=== PATIENT | female | born 1990 | race Caucasian/White ===

== ENCOUNTER 2024-04-22 11:17 | Outpatient (REF) | payer OTHER, SELFPAY ==
--- OUTSIDE RECORDS SUMMARY | 2024-04-22 12:36 | XMS_ITS | Clinical Summary ---
Author Organization [address] Address [address] [place] [phone] Care Team Providers Care Wildlife Ecology Professor Name Role Phone Unavailable Primary Care Provider Unavailabl e Social History Tobacco Use Types Packs/Day Years Used Date Smoking Tobacco: Never Assessed Comments Unknown Sex and Gender Information Value Date Recorded Sex Assigned at Not on file Legal Sex Female 9:31 AM EDT Gender Identity Not on file Sexual Orientation Not on file Plan of Treatment Health Maintenance Due Date Last Done Comments HIV screening 2002 Hepatitis C screening 2007 Cervical cancer screening 2010 Influenza vaccine 10/12/2023 Covid-19 vaccine series ( season) 2023 Tetanus adult (Td q 10,TDAP once) 03/20/2029 03/20/2019, 09/04/2007, 09/24/1999, Additional history exists RSV Discussion (1 - 1-dose 75+ series) 2064 Meningococcal Vaccine Aged Out 09/04/2007 No jackelin rubén eligible based on patient's age to complete this topic Pneumococcal Vaccine Aged Out No long er eligible based on patient's age to complete [place] [address] [employer] FAMILY HEALTH PLAN FAMILY [employer] PLAN
--- OUTSIDE RECORDS SUMMARY | 2024-04-22 12:36 | XMS_ITS ---
Author Name [facility] Organization Unknown History of Medication Use Medication Directions Dispensed Refills Start Date End Date Stat butalbital-acetamino phen-caff Take (oral)[id number] frequency recordedoralNo set duration recordedNo set duration amount [id number] 01/05/2023 ac tive indomethacinTake (oral)[id number] frequency recordedoralNo set duration recordedNo set duration amount [id number] 01/20/2023 active meloxicamTake 1 Tabl et (oral) 2 times per day [id number] times per dayoralNo set duration recordedNo set duration amount recordedactive7.5mg 02/07/2023 a ctive Problems Problem Status Onset Date Problem Type Date of Resolution Source Recurrent headache active EncounterDiagnosisAct HHCCT Headache, unspecified active ProblemAct [facility]_PHYS[facility] Unspecified abdominal pain active 2023-02-07 ProblemAct [facility] Calculus of kidney active ProblemAct [facility] Dorsalgia, unspecified active 2023-02-07 ProblemAct [facility] Dizziness active EncounterDiagnosisAct [facility]_YALEUC Anxiety active EncounterDiagnosisAct [facility]_YALE[facility]
--- OUTSIDE RECORDS SUMMARY | 2024-04-22 12:36 | XMS_ITS | Encounter Summary ---
Author Organization [facility], Address [address] [place] [address] Phone Care Team Providers Care Joint Cutter Machine Name Role Phone Jamie Hummel MD Primary Care Provider + [phone] Encounter Details Date Type Department Care Team (Late st Contact Info) Description 09/18/2019 Orders Only [facility] [address] [place] [address] Waylon Carter MD [address] [place] [address] [place] [address] Renal stone; Hyperthyroidism Social History Tobacco Use Types Packs/Day Years Used Date Smoking Tobacco: Never Assessed Comments Unknown Sex and Gender Information Value Date Recorded Sex Assigned at Not on file Legal Sex Female 9:23 AM EDT Gender Identity Not on file Sexual Orientation Not on file documented as of this encounter Plan of Treatment Not on file documented as of this encounter Procedures Procedure Name Priority Date/Time Associated Diagnosis Comments HOURS COLLECTED 10/18/2019 8:00 AM EDT URINE PROTEIN, 24 HOUR W/O CREATININE Routine 10/18/2019 8:00 AM EDT Renal stone Hyperthyroidism documented in this encounter Results * Hours Collected (10/18/2019 8:00 AM EDT) Collection Period 24 HRS [facility] Urine Volume 300 MLS [facility] Comment: Testing performed or reported by [facility], a Service of [facility], [address] [place] [id number] Neisha Roa MD, Music Rehabilitation Therapist 10/18/2019 8:00 AM EDT 10/18/2019 6:36 PM EDT us Waylon Carter MD LAB [id number] OLICITED RESULTS Final Result Performing Organization Address [facility] Co de Phone Number [facility] * (ABNORMAL) Urine Protein, 24 hour w/o Creatinine (10/18/2019 8:00 AM EDT) Protein, Ur 10 (0-12) MG/DL [facility] 24 Hr Total Protein 0.03(L) (0.04-0.23 ) GM/24HR [facility] Comment: Testing performed or reported by [facility], a Service of [facility], [address] [place] [id number] Neisha Roa MD, Music Rehabilitation Therapist Urine (Urine, Clean Catch) 10/18/2019 8:00 AM EDT 10/18/2019 6:36 PM EDT us Waylon Carter MD LAB URINE ORDERABLES Final Res ult Performing Organization Address [facility] de Phone Number [facility] documented in this encounter Visit Diagnoses Diagnosis Renal stone Hyperthyroidism documented in this encounter Care Teams Joint Cutter Machine Relationship Specialty Start Date End Date Jamie Hummel MD [address] [place] [address] PCP - General Internal Medicine 09/06/19 documented as of this encounter
--- OUTSIDE RECORDS SUMMARY | 2024-04-22 12:36 | XMS_ITS | Clinical Summary ---
Author Organization [facility] Address [address] [place] [address] Phone Care Team Providers Care Monogram Maker Name Role Phone Jamie Hummel MD Primary Care Provider Allergies No known active allergies Medications No known medications Active Problems No known active problems Encounters Date Type Department Care Team Description 04/22/2024 12:14 PM EST Emergency [facility] Emergency [address] [place] [phone] 02/05/2024 6:42 PM EST - 02/05/2024 8:58 PM EST Emergency [facility] Emergency [address] [place] [phone] Abnormal arm sensation (Primary Dx) Discharge Disposition: Home or Self Care 02/04/2024 3:30 PM EST - 02/04/2024 8:43 PM EST [facility] Emergency [address] [place] [phone] Jennifer Rodríguez DO Intractable headache, unspecified chronicity pattern, unspecified headache type (Primary Dx) Discharge Disposition: Home or Self Care from Last 3 Months Surgical History Surgery Date Site/Laterality Comments LITHOTRIPSY PROCEDURE: HISTORICAL LITHOTRIPSY Family History Medical History Relation Name Comments Breast cancer Other Relation Name Status Comments Other Social History Tobacco Use Types Packs/Day Years Used Date Smoking Tobacco: Never Smokeless Tobacco: Never Alcohol Use Standard Drinks/Week Comments Not Currently 0 (1 standard drink = 0.6 oz pur e alcohol) Comments Unknown Sex and Gender Information Value Date Recorded Sex Assigned at Female 02/04/2024 3:23 PM EST Legal Sex Female 12:03 AM EST Gender Identity Female 02/04/2024 3:23 PM EST Sexual Orientation Straight 02/04/2024 3: 23 PM EST Obstetrics History Last Filed Vital Signs Vital Sign Reading Time Taken Comments Blood Pressure 131/87 04/22/2024 12:21 PM EST Pulse 72 04/22/2024 12:21 PM EST Temperature 36.9 ??C (98.4 ??F) 04/22/2024 12:[address] Respiratory Rate 20 04/22/2024 12:21 PM EST Oxygen Saturation 99% 04/22/2024 12:21 PM EST Inhaled Oxygen Concentration - - Weight 63.5 kg (140 lb) 04/22/2024 12:21 PM EST Height 172.7 cm (5' 8 ) 04/22/2024 12:21 PM EST Body Mass Index 21.29 04/22/2024 12:21 PM EST Plan of Treatment Health Maintenance Due Date Last Done Comments Cervical Cancer Screening: Pap Smear 2010 Depression Screening 02/13/2022 HIV Screening 02/13/2022 Hepatitis C Screening 02/13/2022 Social Influencers of Health Screening 02/13/2022 COVID-19 Vaccine ( season) 2023 Influenza Vaccine (#1) 2023 DTaP,Tdap,and Td Vaccines (10 - Td or Tdap) 03/20/2029 03/20/2019, 07/19/2017, 09/04/2007, Additional history exists HIB Vaccines Completed 06/11/1990, 1990 IPV Vaccines Completed 03/31/1994, 03/1989, 1989, Additional history exists MMR Vaccines Completed 03/31/1994, 07/03/1990 Hepatitis B Vaccines Completed 09/05/2001, 01/03/2001, 09/24/1999 HPV Vaccines Completed 08/28/2007, 04/13, 02/16/2007 Meningococcal ACWY Vaccine Aged Out 09/04/2007 N o longer eligible based on patient's age to complete this topic Hepatitis A Vaccines Aged Out No long er eligible based on patient's age to complete this topic Meningococcal B Vacine Aged Out No lo nger eligible based on patient's age to complete this topic Pneumococcal Vaccine: Pediatrics (0 to 5 Years) and At-Risk Patients (6 to 64 Years) Aged Out No longer eligible based on patient's age to complete this topic RSV Immunization Patients Under 20 months Aged Out No longer eligible based on patient's age to complete this topic Varicella Vaccines Aged Out No longer eligible based on patient's age to complete this topic Procedures Procedure Name Priority Date/Time Associated Diagnosis Comments CBC WITH AUTO DIFFERENTIAL STAT 02/05/2024 7:25 PM EST LIPASE STAT 02/05/2024 7:25 PM EST TROPONIN I HIGH SENSITIVITY STAT 02/05/2024 7:25 PM EST MAGNESIUM STAT 02/05/2024 7:25 PM EST COMPREHENSIVE METABOLIC PANEL STAT 02/05/2024 7:25 PM EST CBC AND DIFFERENTIAL STAT 02/05/2024 7:25 PM EST ECG 12-LEAD STAT 02/05/2024 6:05 PM EST ECG ANNOTATED 02/05/2024 CT ANGIO HEAD WO AND/OR W CONTRAST STAT 02/04/2024 6:18 PM EST CBC WITH AUTO DIFFERENTIAL STAT 02/04/2024 5:12 PM EST BASIC METABOLIC PANEL STAT 02/04/2024 5:12 PM EST CBC AND DIFFERENTIAL STAT 02/04/2024 5:12 PM EST from Last 3 Months Results * Troponin I high sensitivity (02/05/2024 7:25 PM EST) High Sensitivity Troponin I <3 <=54 ng/L LAB CHEMISTRY METHOD 02/05/2024 8:19 PM EST [facility] Blood Venous blood specimen / Unknown Venipuncture / Unknown 02/05/2024 7:25 PM EST 02/05/2024 7:34 PM EST Narrative [facility] - 02/05/2024 8:19 PM EST High levels of biotin in samples may falsely decrease hsTroponin values. ??Use caution when interpreting hsTroponin results in patients taking biotin who exhibit renal impairment (eGFR <60) or in patients taking more than 20 mg/day of biotin. Roslyn BENAVIDES LAB BLOOD ORDERABLES Final Resul t [facility] [address] [place] [address], [place] [phone] * (ABNORMAL) CBC auto differential (02/05/2024 7:25 PM EST) Only the most recent of2 resultswithin the time period is included. WBC 10.6 4.8 - 10.8 K/mcL LAB HEMETOLOGY METHOD 02/05/2024 7:39 PM [facility] RBC 4.50 3.80 - 4.80 M/mcL LAB HEMETOLOGY METHOD 02/05/2024 7:39 PM [facility] Hemoglobin 13.8 11.5 - 16.0 g/dL LAB HEMETOLOGY METHOD 02/05/2024 7:39 PM [facility] Hematocrit 40.7 35.0 - 47.0 % LAB HEMETOLOGY METHOD 02/05/2024 7:39 PM [facility] MCV 90.0 79.0 - 98.0 FL LAB HEMETOLOGY METHOD 02/05/2024 7:39 PM [facility] MCH 30.5 27.0 - 32.0 pcg LAB HEMETOLOGY METHOD 02/05/2024 7:39 PM [facility] MCHC 33.9 32.0 - 37.0 g/dL LAB HEMETOLOGY METHOD 02/05/2024 7:39 PM [facility] RDW 12.1 11.0 - 15.0 % LAB HEMETOLOGY METHOD 02/05/2024 7:39 PM [facility] Platelets 269 130 - 400 K/mcL LAB HEMETOLOGY METHOD 02/05/2024 7:39 PM [facility] MPV 10.7 7.0 - 11.0 FL LAB HEMETOLOGY METHOD 02/05/2024 7:39 PM [facility] NRBC 0.0 <1.0 % LAB HEMETOLOGY METHOD 02/05/2024 7:39 PM [facility] NRBC Absolute 0.00 <0.10 K/mcL LAB HEMETOLOGY METHOD 02/05/2024 7:39 PM [facility] Neutrophils Relative 83.9 % LAB HEMETOLOGY METHOD 02/05/2024 7:39 PM [facility] Lymphocytes Relative 13.0 % LAB HEMETOLOGY METHOD 02/05/2024 7:39 PM [facility] Monocytes Relative 2.2 % LAB HEMETOLOGY METHOD 02/05/2024 7:39 PM [facility] Eosinophils Relative 0.0 % LAB HEMETOLOGY METHOD 02/05/2024 7:39 PM [facility] Basophils Relative 0.2 % LAB HEMETOLOGY METHOD 02/05/2024 7:39 PM [facility] Immature Granulocytes Relative 0.7 % LAB HEMETOLOGY METHOD 02/05/2024 7:39 PM [facility] Neutrophils Absolute 8.88(H) 1.50 - 7.00 K/mcL LAB HEMETOLOGY METHOD 02/05/2024 7:39 PM [facility] Lymphocytes Absolute 1.38 1.00 - 5.00 K/mcL LAB HEMETOLOGY METHOD 02/05/2024 7:39 PM [facility] Monocytes Absolute 0.23 0.20 - 1.00 K/mcL LAB HEMETOLOGY METHOD 02/05/2024 7:39 PM EST [facility] Eosinophils Absolute 0.00 0.00 - 0.50 K/[facility] LAB HEMETOLOGY METHOD 02/05/2024 7:39 PM EST [facility] Basophils Absolute 0.02 0.00 - 0.20 K/[facility] LAB HEMETOLOGY METHOD 02/05/2024 7:39 PM EST [facility] Immature Granulocytes Absolute 0.07(H) 0.00 - 0.03 K/[facility] LAB HEMETOLOGY METHOD 02/05/2024 7:39 PM EST [facility] Blood Venous blood specimen / Unknown Venipuncture / Unknown 02/05/2024 7:25 PM EST 02/05/2024 7:34 PM EST [facility] LAB BLOOD ORDERABLES Final Resul t Performing Organization Address City/[facility]/ZIP Co de Phone Number [facility] [address] [place] [address], [place] [phone] * Magnesium (02/05/2024 7:25 PM EST) [facility] Magnesium 2.3 1.9 - 2.6 mg/dL LAB CHEMISTRY METHOD 02/05/2024 8:19 PM EST [facility] Blood Venous blood specimen / Unknown Venipuncture / Unknown 02/05/2024 7:25 PM EST 02/05/2024 7:34 PM EST [facility] LAB BLOOD ORDERABLES Final Resul t [facility] [address] [place] [address], [place] [phone] * Lipase (02/05/2024 7:25 PM EST) [facility] Lipase 41 13 - 75 unit/L LAB CHEMISTRY METHOD 02/05/2024 8:19 PM [facility] Blood Venous blood specimen / Unknown Venipuncture / Unknown 02/05/2024 7:25 PM EST 02/05/2024 7:34 PM EST us Roslyn Dot BENAVIDES LAB BLOOD ORDERABLES Final Resul t [facility] [address] [place] [address], * (ABNORMAL) Comprehensive metabolic panel (02/05/2024 7:25 PM EST) Sodium 137 133 - 145 mmol/L LAB CHEMISTRY METHOD 02/05/2024 8:19 PM [facility] Potassium 4.4 3.5 - 5.5 mmol/L LAB CHEMISTRY METHOD 02/05/2024 8:19 PM [facility] Chloride 106 96 - 110 mmol/L LAB CHEMISTRY METHOD 02/05/2024 8:19 PM [facility] CO2 25 21 - 32 mmol/L LAB CHEMISTRY METHOD 02/05/2024 8:19 PM [facility] Anion Gap 6 3 - 11 LAB CHEMISTRY METHOD 02/05/2024 8:19 PM [facility] Glucose 118(H) 70 - 100 mg/dL LAB CHEMISTRY METHOD 02/05/2024 8:19 PM [facility] BUN 10 5 - 25 mg/dL LAB CHEMISTRY METHOD 02/05/2024 8:19 PM [facility] Creatinine 0.64 0.50 - 1.10 mg/dL LAB CHEMISTRY METHOD 02/05/2024 8:19 PM [facility] eGFR 119 >=60 mL/min/1. 73m2 LAB CHEMISTRY METHOD 02/05/2024 8:19 PM [facility] Comment:Calculation based on the??Chronic Kidney Disease Epidemiology Collaboration (CKD-EPI) equation refit??without adjustment for race. BUN/Creatinine Ratio 15.6 LAB CHEMISTRY METHOD 02/05/2024 8:19 PM [facility] Calcium 9.5 8.5 - 10.5 mg/dL LAB CHEMISTRY METHOD 02/05/2024 8:19 PM [facility] AST (SGOT) 8(L) 10 - 42 unit/L LAB CHEMISTRY METHOD 02/05/2024 8:19 PM [facility] ALT (SGPT) 25 10 - 60 unit/L LAB CHEMISTRY METHOD 02/05/2024 8:19 PM [facility] Alkaline Phosphatase 76 42 - 121 unit/L LAB CHEMISTRY METHOD 02/05/2024 8:19 PM [facility] Total Protein 7.3 6.0 - 8.0 g/dL LAB CHEMISTRY METHOD 02/05/2024 8:19 PM [facility] Albumin 4.5 3.2 - 5.0 g/dL LAB CHEMISTRY METHOD 02/05/2024 8:19 PM [facility] Total Bilirubin 0.5 0.0 - 1.4 mg/dL LAB CHEMISTRY METHOD 02/05/2024 8:19 PM [facility] Blood Venous blood specimen / Unknown Venipuncture / Unknown 02/05/2024 7:25 PM EST 02/05/2024 7:34 PM EST us Roslyn BENAVIDES LAB BLOOD ORDERABLES Final Resul t [facility] [address] [place] [address], * ECG 12 lead (02/05/2024 6:05 PM EST) Ventricular Rate ECG 71 BPM GEMUSE Atrial Rate 71 BPM GEMUSE P-R Interval 142 ms GEMUSE QRS Duration 92 ms GEMUSE Q-T Interval 392 ms GEMUSE QTc 425 ms GEMUSE P Wave [place] 53 degrees GEMUSE R [place] 89 degrees GEMUSE T [place] 43 degrees GEMUSE ECG Interpretation Normal sinus rhythm Normal ECG When compared with ECG of 08-MAR-2022 17:14, Nonspecific T wave abnormality now evident in Anterior leads Confirmed by [place] BRAVO JOHN ([id number]) on 02/06/2024 1:04:50 PM GEMUSE 02/05/2024 6:05 PM EST 02/06/2024 1:04 PM EST Leonard Adrián Sanders MD ECG ORDERABLES Final Result GEMUSE * ECG-Annotated (02/05/2024) Provider Onbase ECG ORDERABLES Final Result * CT Angio Head wo and/or w Contrast (02/04/2024 6:18 PM EST) Anatomical Region Laterality Modality Head and Neck Computed Tomogra phy 02/04/2024 6:50 PM EST Impressions 02/04/2024 6:50 PM EST Impression: 1. No acute intracranial abnormalities. 2. Unremarkable appearing CTA of the head and neck. This document has been electronically signed by: Jony Sun MD on 02/04/2024 18:50:10 Narrative 02/04/2024 6:50 PM EST Exam: Unenhanced CT brain, and contrast-enhanced CTA head and neck with multiplanar reformats. Comparison: None. Findings: Nonenhanced CT brain: No intracranial mass, midline shift, hydrocephalus, or acute hemorrhage. No CT evidence of acute ischemia. 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 Visualized paranasal sinuses and mastoid air cells normal. Orbits unremarkable. No skull fracture. CTA brain: There is good opacification of the bilateral anterior and posterior intracranial arterial circulations. No large vessel occlusion or significant intracranial arterial stenoses. No truncation of flow. No aneurism or vascular malformation. No venous thrombosis or enhancing parenchymal lesions. CTA neck: Unremarkable aortic arch. Common and internal carotid arteries are patent bilaterally. Vertebral arteries are patent bilaterally. No occlusion, hemodynamically significant stenoses or evidence of dissection. Visualized pulmonary apices are clear. No neck masses or adenopathy. No destructive osseous lesions. Procedure Note Jony Sun MD - 02/04/2024 Exam: Unenhanced CT brain, and contrast-enhanced CTA head and neck with multiplanar reformats. Comparison: None. Findings: Nonenhanced CT brain: No intracranial mass, midline shift,hydrocephalus, or acute hemorrhage. No CT evidence of acute ischemia. 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 Visualized paranasal sinuses and mastoid air cells normal. Orbits unremarkable. No skull fracture. CTA brain: There is good opacification of the bilateral anterior and posterior intracranial arterial circulations. No large vessel occlusionor significant intracranial arterial stenoses. No truncation of flow. No aneurism or vascular malformation. No venous thrombosis or enhancing parenchymal lesions. CTA neck: Unremarkable aortic arch. Common and internal carotid arteries are patent bilaterally. Vertebral arteries are patent bilaterally. No occlusion, hemodynamically significant stenoses or evidence ofdissection. Visualized pulmonary apices are clear. No neck masses or adenopathy. No destructive osseous lesions. IMPRESSION: Impression: 1. No acute intracranial abnormalities. 2. Unremarkable appearing CTA of the head and neck. This document has been electronically signed by: Jony Sun MD on 02/04/2024 18:50:10 [facility] Rajinder Galaviz Marcos DO IMG CT PROCEDURES Final R esult * (ABNORMAL) Basic metabolic panel (02/04/2024 5:12 PM EST) Sodium 139 133 - 145 mmol/L LAB CHEMISTRY METHOD 02/04/2024 5:49 PM EST [facility] Potassium 4.5 3.5 - 5.5 mmol/L LAB CHEMISTRY METHOD 02/04/2024 5:49 PM EST [facility] Chloride 107 96 - 110 mmol/L LAB CHEMISTRY METHOD 02/04/2024 5:49 PM EST [facility] CO2 27 21 - 32 mmol/L LAB CHEMISTRY METHOD 02/04/2024 5:49 PM [facility] Anion Gap 5 3 - 11 LAB CHEMISTRY METHOD 02/04/2024 5:49 PM [facility] Glucose 111(H) 70 - 100 mg/dL LAB CHEMISTRY METHOD 02/04/2024 5:49 PM [facility] BUN 7 5 - 25 mg/dL LAB CHEMISTRY METHOD 02/04/2024 5:49 PM [facility] Creatinine 0.79 0.50 - 1.10 mg/dL LAB CHEMISTRY METHOD 02/04/2024 5:49 PM [facility] eGFR 101 >=60 mL/min/1. 73m2 LAB CHEMISTRY METHOD 02/04/2024 5:49 PM [facility] Comment:Calculation based on the??Chronic Kidney Disease Epidemiology Collaboration (CKD-EPI) equation refit??without adjustment for race. BUN/Creatinine Ratio 8.9 LAB CHEMISTRY METHOD 02/04/2024 5:49 PM [facility] Calcium 9.4 8.5 - 10.5 mg/dL LAB CHEMISTRY METHOD 02/04/2024 5:49 PM [facility] Blood Venous blood specimen / Unknown Venipuncture / Unknown 02/04/2024 5:12 PM EST 02/04/2024 5:21 PM EST Jennifer Rodríguez DO LAB BLOOD ORDERABLES Mis l Result [facility] [address] [place] [address], from Last [address] [place] [id number] [employer] Care Teams Monogram Maker Relationship Specialty Start Date End Date Jamie Hummel MD [address] [place] [id number] PCP - General Internal Medicine 09/03/20
--- OUTSIDE RECORDS SUMMARY | 2024-04-22 12:36 | XMS_ITS | Clinical Summary ---
Author Organization Formerly [facility] Address [address] [place] [address] Care Team Providers Care Lead Blender Name Role Phone Jamie Hummel MD Primary Care Provider Encounters Date Type Department Care Team Description 04/22/2024 Scanned Document [address] [phone] Penny Sultana PA 04/19/2024 [place] [phone] Meek Contreras MD Recurrent headache (Primary Dx) from Last 3 Months Social History Tobacco Use Types Packs/Day Years Used Date Smoking Tobacco: Never Assessed Sex and Gender Information Value Date Recorded Sex Assigned at Not on file Gender Identity Not on file Sexual Orientation Not on file Plan of Treatment Upcoming Encounters Date Type Department Care Team (Late st Contact Info) Description 04/24/2024 1:30 PM EST Office Visit [address] [phone] Penny Sultana PA [address] [place] [id number] Health Maintenance Due Date Last Done Comments Hepatitis C Virus Screening 1989 HIV Screening 2002 DTaP/Tdap/Td Vaccines (1 - Tdap) 2008 Hepatitis B Vaccines (1 of 3 - 19+ 3-dose series) 2008 Influenza Vaccine 10/12/2023 COVID-19 Vaccine (2023-2 5 season) 2023 HPV Vaccines Aged Out No longer eligi ble based on patient's age to complete this topic Pneumococcal Vaccine: Pediat delfino (0-5 Years) and At-Risk Patients (6 to 49 Years) Aged Out No longer eligible b ased on patient's age to complete this topic Care Teams Lead Blender Relationship Specialty Start Date End Date Jamie Hummel MD [address] [place] [address] PCP - General Internal Medicine 04/19/24
--- OUTSIDE RECORDS SUMMARY | 2024-04-22 12:36 | XMS_ITS | Encounter Summary ---
Author Organization [facility], Address [address] [place] [address] Phone Care Team Providers Care Dirt Bike Mechanic Name Role Phone Jamie Hummel MD Primary Care Provider [phone] Encounter Details Date Type Department Care Team (Late st Contact Info) Description 02/07/2022 Documentation Only [facility], [address] [place] [address] Eliza Blevins [address] [place] [address] Social History Tobacco Use Types Packs/Day Years Used Date Smoking Tobacco: Never Assessed Comments Unknown Sex and Gender Information Value Date Recorded Sex Assigned at Not on file Legal Sex Female 9:23 AM EDT Gender Identity Not on file Sexual Orientation Not on file documented as of this encounter Plan of Treatment Not on file documented as of this encounter Visit Diagnoses Not on filedocumented in this encounter Care Teams Dirt Bike Mechanic Relationship Specialty Start Date End Date Jamie Hummel MD [address] [place] [address] PCP - General Internal Medicine 09/06/19 documented as of this encounter
--- OUTSIDE RECORDS SUMMARY | 2024-04-22 12:36 | XMS_ITS | Encounter Summary ---
Author Organization [facility] Address [address] [place] [address] Care Team Providers Care Clerk Secretary Name Role Phone Jamie Hummel MD Primary Care Provider Reason for Referral * Neurology (Routine) - Pending Review Specialty Diagnoses / Procedures Referred By Rachelle iglesias Referred To Contact Neurology Diagnoses Recurrent [place] [address] Rohan Guy MD [address] [place] [id number] Referral ID Status Reason Start Date Expiration Date Visits Requested Visits Authorized [id number] Pending Review Consult 04/19/2024 04/20/2025 1 1 Question Answer Is headache or facial pain the reason for referral? Yes Which of the following diagnosis most closely fits the reasong for referral? For head injury or TBI please use general neurology referral. Migraine Has the patient been seen by neurology or a headache specialist previously for headache? No Encounter Details Date Type Department Care Team (Latest Contact Info) Description 04/19/2024 [place] [phone] Meek Contreras MD [place], [place] [phone] Recurrent headache (Primary Dx) Social History Tobacco Use Types Packs/Day Years Used Date Smoking Tobacco: Never Assessed Sex and Gender Information Value Date Recorded Sex Assigned at Not on file Gender Identity Not on file Sexual Orientation Not on file documented as of this encounter Plan of Treatment Upcoming Encounters Date Type Department Care Team (Late st Contact Info) Description 04/24/2024 1:30 PM EST Office Visit [facility] Emergency Department [address] [facility] [address] [place] [phone] Penny Sultana PA [address] [address] Scheduled Referrals Name Type Priority Associated Diagnoses Orde r Schedule Amb Referral to Neurology-Headache Outpatient Referral Routine Recurrent headache Ordered: 04/19/2024 documented as of this encounter Visit Diagnoses Diagnosis Recurrent headache- Primary documented in this encounter Care Teams Clerk Secretary Relationship Specialty Start Date End Date Jamie Hummel MD [address] [place] [id number] PCP - General Internal Medicine 04/19/24 documented as of this encounter
--- OUTSIDE RECORDS SUMMARY | 2024-04-22 12:36 | XMS_ITS | Encounter Summary ---
Author Organization [facility], Address [address] [place] [address] Phone Care Team Providers Care Head Sampler Name Role Phone Jamie Hummel MD Primary Care Provider [phone] Encounter Details Date Type Department Care Team (Late st Contact Info) Description 07/27/2023 Documentation Only [facility], [address] [place] [address] Candy Bucio [place] [address] [place] [address] Social History Tobacco Use Types [...] on filedocumented in this encounter Care Teams Head Sampler Relationship Specialty Start Date End Date Jamie Hummel MD [address] [place] [address] PCP - General Internal Medicine 09/06/19 documented as of this encounter
--- OUTSIDE RECORDS SUMMARY | 2024-04-22 12:36 | XMS_ITS | Clinical Summary ---
Author Organization [facility], Address [address] [place] [address] Phone Care Team Providers Care Aviation Electrician Name Role Phone Jamie Hummel MD Primary Care Provider Allergies No known active allergies Medications hydroCHLOROthiaz corby (HYDRODIURIL) 25 MG tabletIndication s:Calculus of kidney and ureter,Hyperthyr oidism Take 1 tablet (25 mg total) by mouth 1 (one) time each day 90 tablet 3 03/16/2020 Active Active Problems Problem Noted Date Diagnosed Date Hyperthyroidism 09/11/2019 Calculus of kidney and ureter Immunizations Name Administration Dates Next Due DTaP 03/31/1994, 1,1989,1989,03/1989 HPV, Quadrivalent 08/28/2007,04/27/2007,02/17/20 07 Hep B, Unspecified 09/05/2001,01/03/2001, 000 HiB 06/11/1990,1990 IPV 03/31/1994,1989,1989 ,1989 MMR 03/31/1994,07/03/1990 Meningococcal Polysaccharide 09/04/2007 Td, Unspecified 09/24/1999 Tdap 03/20/2019,09/04/2007 Social History Tobacco Use Types Packs/Day Years Used Date Smoking Tobacco: Never Assessed Comments Unknown Sex and Gender Information Value Date Recorded Sex Assigned at Not on file Legal Sex Female 9:23 AM EDT Gender Identity Not on file Sexual Orientation Not on file Plan of Treatment Health Maintenance Due Date Last Done Comments Influenza Vaccine (#1) 2023 Hepatitis B Vaccine Completed 09/05/2001, 01/03/2001, 09/24/1999 Pneumococcal Vaccine: Pediatrics (0 to 5 Years) and At-Risk Patients (6 to 64 Years) Aged Out No longer eligible b ased on patient's age to complete this topic Insurance [facility] Care Teams Aviation Electrician Relationship Specialty Start Date End Date Jamie Hummel MD [address] [place] [address] PCP - General Internal Medicine 09/06/19
--- OUTSIDE RECORDS SUMMARY | 2024-04-22 12:36 | XMS_ITS | Encounter Summary ---
Author Organization [facility], Address [address] [place] [address] Phone Care Team Providers Care Public Health Administrator Name Role Phone Jamie Hummel MD Primary Care Provider [phone] Encounter Details Date Type Department Care Team (Late st Contact Info) Description 11/04/2019 Orders Only [facility] [address] [place] [address] Calculus of kidney and ureter; Hyperthyroidism Social History Tobacco Use Types Packs/Day [...] Procedure Name Priority Date/Time Associated Diagnosis Comments URIC ACID, URINE, 24 HOUR 11/04/2019 2:12 PM EDT CALCIUM, URINE, RANDOM (HC) 11/04/2019 2:09 PM EDT URIC ACID, URINE, 24 HOUR Routine 11/04/2019 2:08 PM EDT Calculus of kidney and ureter Hyperthyroidism documented in this encounter Results * Urine Uric Acid, 24 hour (11/04/2019 2:12 PM EDT) URIC ACID, URINE RND 39.0 MG/DL [facility] Comment: Testing performed or reported by [facility], a Service of [facility], [address] [place] [phone] Neisha Roa MD, Hand Bookbinder 11/04/2019 2:12 PM EDT 11/04/2019 2:20 PM EDT Waylon Carter MD LAB URINE ORDERABLES Final Res ult Performing Organization Address [facility] Co de Phone Number [facility] * Calcium, Urine, Random (11/04/2019 2:09 PM EDT) Calcium, Ur 16.8 MG/DL [facility] Comment: Testing performed or reported by [facility], a Service of [facility], [address] [place] [id number] Neisha Roa MD, Hand Bookbinder 11/04/2019 2:09 PM EDT 11/04/2019 2:20 PM EDT Result [facility] Waylon Carter MD LAB [id number] OLICITED RESULTS Final Result Performing Organization Address [facility] de Phone Number [facility] * Urine Uric Acid, 24 hour (11/04/2019 2:08 PM EDT) URIC ACID, URINE RND 36.7 MG/DL [facility] Comment: Testing performed or reported by [facility], a Service of [facility], [address] [place] [id number] Neisha Roa MD, Hand Bookbinder Urine (Urine, Clean Catch) 11/04/2019 2:08 PM EDT 11/04/2019 2:20 PM EDT Waylon Carter MD LAB URINE ORDERABLES Final Res ult Performing Organization Address [facility] Co de Phone Number [facility] documented in this encounter Visit Diagnoses Diagnosis Calculus of kidney and ureter Hyperthyroidism documented in this encounter Care Teams Public Health Administrator Relationship Specialty Start Date End Date Jamie Hummel MD [address] [place] [address] PCP - General Internal Medicine 09/06/19 documented as of this encounter
--- OUTSIDE RECORDS SUMMARY | 2024-04-22 12:36 | XMS_ITS | Encounter Summary ---
Author Organization [facility] Address [address] [place] [address] Care Team Providers Care Value Stream Manager Name Role Phone Jamie Hummel MD Primary Care Provider Encounter Details Date Type Department Care Team (Late st Contact Info) Description 04/22/2024 Scanned Document [address] [phone] Penny Sultana PA [address] [place] [phone] Social History Tobacco Use Types Packs/Day Years Used Date Smoking Tobacco: Never Assessed Sex and Gender Information Value Date Recorded Sex Assigned at Not on file Gender Identity Not on file Sexual Orientation Not on file documented as of this encounter Plan of Treatment Upcoming Encounters Date Type Department Care Team (Late st Contact Info) Description 04/24/2024 1:30 PM EST Office Visit [address] [phone] Penny uSltana PA [address] [place] [phone] documented as of this encounter Visit Diagnoses Not on filedocumented in this encounter Care Teams Value Stream Manager Relationship Specialty Start Date End Date Jamie Hummel MD [address] [place] [phone] PCP - General Internal Medicine 04/19/24 documented as of this encounter
== END 2024-04-22 11:18 | disposition home or self-care (01) ==
LOC: HO.LAB 11:17
PROVIDERS: Visit Provider Registered Nurse
DX: Z13.89 Encounter for screening for other disorder (principal)